=== PATIENT | male | born 1950 | race Caucasian/White ===

== ENCOUNTER 2019-07-18 09:11 | Emergency (ER) | payer MEDICARE, OTHER ==
[~2019-07-18] VITALS: Ht 185.4 cm; Wt 85.0 kg
--- NOTE | 2019-07-18 09:47 | NUR ---
PT C/O N/V X 5 EPISODES THIS AM X 0500. C DIZZINESS & MILD VISUAL DISTRUBANCE. PT STATES ONSET WAS YESTERDAY, RESOLVED LAST NIGHT. PT DENIES ANY PMH, STATES HES BEEN TOLD IN PAST HAS HTN, BUT NEVER TREATED. ON MONITOR, EKG COMPLETED. HTN NOTED. DENIES ANY H/A. VISION IS "SLIGHTLY OFF" OTHERWISE NEGATIVE NEURO EXAM. +PUSH/PULL. FAMILY AT BS, DAUGHTER, STATES PT ISNT SHARP HE NORMALLY IS.
[2019-07-18] MEDS ORDERED: MECLIZINE CHEWABLE 25 MG TAB ONE (10:47)
--- NOTE | 2019-07-18 10:54 | NUR ---
MEDS PER MAR. TOLERATED WELL. AWARE OF PENDING MRI. DENIES ANY NEEDS. WILL CTM.
[2019-07-18] MEDS ORDERED: SODIUM CHLORIDE FLUSH 10ML SYR IVF ONE (11:00)
[2019-07-18] MEDS ORDERED: PLEASE ENTER ALLERGIES MC SCH (11:00)
[2019-07-18] MEDS ORDERED: MECLIZINE CHEWABLE 25 MG TAB PO ONE (11:00)
[2019-07-18 11:02] LABS: BASOPHILS # (AUTO) 0.01 x10^3/uL (0-0.1); BASOPHILS % (AUTO) 0 % (0-1); EOSINOPHILS # (AUTO) 0.08 x10^3/uL (0-0.4); EOSINOPHILS % (AUTO) 1 % (1-7); LYMPHOCYTES # (AUTO) 0.54 x10^3/uL (1-3.4); LYMPHOCYTES % (AUTO) 7 % (22-44); MD NO; MEAN CORPUSCULAR HEMOGLOBIN 33.8 pg (27.5-34.5); MEAN CORPUSCULAR HGB CONC 33.5 g/dL (33.2-36.2); MEAN PLATELET VOLUME 9.5 fL (7.4-10.4); MONOCYTES # (AUTO) 0.24 x10^3/uL (0.2-0.8); MONOCYTES % (AUTO) 3 % (2-9); NEUTROPHILS # (AUTO) 6.52 x10^3/uL (1.8-6.8); NEUTROPHILS % (AUTO) 88 % (42-75); PLATELET COUNT 217 x10^3/uL (130-400); RED BLOOD COUNT 4.39 x10^6/uL (4.38-5.82); RED CELL DISTRIBUTION WIDTH 14.1 % (9.4-14.8)
[2019-07-18 11:14] LABS: ALANINE AMINOTRANSFERASE 18 U/L (12-78); ALBUMIN 3.7 g/dL (3.4-5.0); ANION GAP 7 mmol/L (5-15); CALCIUM 8.7 mg/dL (8.5-10.1); CHLORIDE 103 mmol/L (98-107); CREATININE 1.03 mg/dL (0.7-1.3)
[2019-07-18 11:18] LABS: ALKALINE PHOSPHATASE 69 U/L (45-117); BILIRUBIN,TOTAL 0.5 mg/dL (0.2-1.0); TOTAL PROTEIN 7.3 g/dL (6.4-8.2); TROPONIN I < 0.015 ng/mL (0.000-0.045)
--- NOTE | 2019-07-18 11:19 | NUR ---
MRI SCREENING COMPLETE.
--- NOTE | 2019-07-18 11:43 | NUR ---
TO MRI VIA W/C.
[2019-07-18 12:11] LABS: MICROSCOPIC NOT IND
[2019-07-18 12:15] LABS: CULTURE INDICATED? NO
--- NOTE | 2019-07-18 12:19 | NUR ---
BACK FROM MRI
[2019-07-18] MEDS ORDERED: DILTIAZEM 5 MG/ML, 5ML ONE (12:43)
[2019-07-18] MEDS ORDERED: DILTIAZEM 5 MG/ML, 5ML IVPush ONE (13:00)
--- NOTE | 2019-07-18 13:29 | NUR ---
RBS 96. OK TO FEED. GIVEN CRACKERS & PEANUT BUTTER.
--- NOTE | 2019-07-18 14:45 | NUR ---
R EAR IRRIGATED. PT TOLERATED WELL.
[2019-07-18 15:02] VITALS: BP 153/65
== END 2019-07-18 15:04 | disposition home or self-care (01) ==
LOC: ED 09:32
DX: H81.10 Benign paroxysmal vertigo, unspecified ear (principal); I10 Essential (primary) hypertension
CPT/HCPCS: 36415; 70544; 70551; 80053; 81003; 84484; 85025; 93005; 96374